=== PATIENT | female | born 1985 | race Caucasian/White ===

== ENCOUNTER 2017-05-15 23:34 | Emergency (ER) | payer MEDICAID, OTHER ==
--- NOTE | 2017-05-16 00:22 | OBHP ---
Datetime: 05/16/2017 00:15 IP Adm Impression: , intrauterine ; No Active Labor IP Chief Complaint Other: pelvic pressure IP Adm Impression Other: constipation IP Admit Plan: Discharge home Admit Comment, IP Provider: chief complaint-vaginal pressure HPI 31 y/o at 36.5 wga with c/o vagina; pressure and no bowel movement for 2 ays Ptaient denies vaginal bleeding or loss of fluid course uncomplicated PMH denies PSH csection obgyn hx Social hx denies tobacco, alcohol or illicit drug use Exam see exam section A/P 28 y/o at 36.5 wga with vaginal/pelvic pressure.constipation.no activ elabor -discharge home -iincrease water intake.advsied to use colace .dietart modifications discussed as well -follow up in am with dr matias Pelvic Type - PN: Adequate Extremities - PN: Normal Abdomen - PN: Normal General - PN: Normal Contraction Comments Provider: none Gestation - Est Wks by US: 36.5 IP Hx Assessment: The History has been Reviewed and is Current EGA AdmitDate IP: 36.4 Vital Signs Provider: Reviewed; Within Normal Limits IP Chief Complaint: Other FHR Category Provider Fetus A: Category I Dilatation, Provider: 0 Effacement, Provider: Station, Provider: [facility] Genitourinary Exam: Normal DTRs - PN: Normal
[2017-05-16 04:31] VITALS: BP 125/70; PULSE 84; RESP 18; TEMP 97.8
== END 2017-05-16 00:24 | disposition home or self-care (01) ==
LOC: C.EROB 23:34
DX: O26.893 Other specified pregnancy related conditions, third trimester (principal); K59.00 Constipation, unspecified; R10.2 Pelvic and perineal pain; Z3A.36 36 weeks gestation of pregnancy

== ENCOUNTER 2017-05-29 07:12 | Inpatient (IN) | payer MEDICAID ==
[2017-05-29] MEDS ORDERED: cefOXitin 2 GM in Dextrose 5% In Water 100 ML IV ONE (07:24)
[2017-05-29] MEDS ORDERED: Sodium Citrate/Citric Acid 15 ml Sol PO ONE (07:24)
[2017-05-29] MEDS ORDERED: Lactated Ringer's 1,000 ML IV SCH (07:30)
[2017-05-29 08:38] LABS: BASO % 0.1 % (0.0-2.0); EOS # 0.1 K/uL (0.0-0.7); EOS % 0.7 % (0.0-4.0); HEMATOCRIT 32.8 % (34.0-47.0); LYMPH # 1.8 K/uL (1.0-4.3); LYMPH % 22.8 % (20.0-40.0); MEAN CORPUSCULAR HEMOGLOBIN 29.6 pg (27.0-31.0); MEAN CORPUSCULAR HGB CONC 33.3 g/dL (33.0-37.0); MEAN PLATELET VOLUME 10.2 fL (7.2-11.7); MONO # 0.5 K/uL (0.0-0.8); MONO % 6.6 % (0.0-10.0); RED CELL DISTRIBUTION WIDTH 15.9 % (11.5-14.5)
[2017-05-29 08:52] LABS: MEAN CELL VOLUME 88.7 fL (81.0-99.0)
[2017-05-29 08:54] LABS: RBC URINE 1 /hpf (0-3); URINE BACTERIA OCC (<OCC); URINE BILIRUBIN NEGATIVE (NEGATIVE); URINE BLOOD NEGATIVE (NEGATIVE); URINE CALCIUM OXALATE CRYSTALS RARE /hpf (<OCC); URINE COLOR Yellow (YELLOW); URINE GLUCOSE (UA) NORMAL (Normal); URINE KETONE NEGATIVE (NEGATIVE); URINE LEUKOCYTE ESTERASE NEG Leu/uL (Negative); URINE PROTEIN NEGATIVE (NEGATIVE); URINE UROBILINOGEN NORMAL mg/dL (0.2-1.0); WBC URINE 2 /hpf (0-5)
[2017-05-29 08:59] LABS: CHLORIDE 104 mmol/L (98-107); POTASSIUM 3.8 mmol/L (3.6-5.2); SODIUM 134 mmol/L (132-148)
[2017-05-29 09:01] LABS: ALB/GLOB RATIO 1.2 (1.0-2.1); AST/SGOT 43 U/L (14-36); BILIRUBIN,TOTAL 1.3 mg/dL (0.2-1.3); BLOOD UREA NITROGEN 10 mg/dL (7-17); CARBON DIOXIDE 18 mmol/L (22-30); GFR AFRICAN-AMERICAN > 60; TOTAL PROTEIN 6.8 g/dL (6.3-8.3)
[2017-05-29 09:02] LABS: ALKALINE PHOSPHATASE 153 U/L (38-126); ALT/SGPT 25 U/L (9-52); CALCIUM 8.6 mg/dl (8.6-10.4); GLUCOSE,RANDOM 74 mg/dL (65-105)
[2017-05-29] MEDS ORDERED: Sodium Citrate/Citric Acid 15 ml Sol ONE (10:52)
[2017-05-29] MEDS ORDERED: Oxytocin 20 units in LR 2,000 ML IV ONE (13:08)
[2017-05-29] MEDS ORDERED: Morphine 1 mg/ml preservative-free Inj(Duramorph) ONE (13:13)
[2017-05-29] MEDS ORDERED: Naloxone 0.4 mg/ml Inj (Adult) IVP PRN (13:53)
[2017-05-29] MEDS: cefOXitin IV 2 gm in Dextrose 2 GM/50 ML BAG IVPB SCH (19:02)
[2017-05-29] MEDS: Simethicone 80 mg Chewtab PO SCH ×2 (19:04→23:29)
--- NOTE | 2017-05-29 20:42 | OP ---
PROCEDURE DATE: 05/29/2017 PREOPERATIVE DIAGNOSES: Intrauterine at 38 weeks in labor, previous section x2. POSTOPERATIVE DIAGNOSES: Intrauterine at 38 weeks in labor, previous section x2. PROCEDURE: Lower segment caesarean section. SURGEON: Yissel Fitch MD. Labor Standards Director: Geovany Jimenes MD TYPE OF ANESTHESIA: Spinal. FINDINGS: Live female , Apgars 9 at 1 minute and 9 at 5 minutes with normal tubes and ovaries. ESTIMATED BLOOD LOSS: 250 mL. COMPLICATIONS: Nil. DESCRIPTION OF PROCEDURE: After the risks, benefits, and alternatives of the planned procedures including but not limited to infection, hemorrhage, deep vein thrombosis, atelectasis, pneumonia, pulmonary embolism, damage to the bladder, damage to the ureter, renal insufficiency, renal failure, wound infection, wound dehiscence, incisional hernia, keloid formation, damage to large and small intestines, damage to inferior vena cava and aorta requiring extensive repair, anesthesia complications, electrolyte imbalance, possibility of , fluid overload, cerebral edema, air embolism, and other complications that were discussed, but are not listed above have been explained to the patient and all her questions were answered and informed consent was obtained. The patient was taken to the operating room in a stable condition. Under a suitable level of spinal analgesia, she was prepped and draped in a sterile fashion after having been placed in a supine position. The abdomen was entered through a Pfannenstiel-type incision and carried through the subcutaneous tissues to the fascia. Fascia was opened transversely and dissected off the rectus abdominis musculature. The rectus abdominis musculature was then in the midline to remove the parietal peritoneum, which was entered sharply and incised superiorly and inferiorly. The bladder peritoneum was then incised in a curvilinear fashion and dissected off the lower uterine segment. The lower uterine segment was then entered through a curvilinear incision. Surgeon's fingers were inserted into the lower uterine segment, grasping 's head which was lying in a right occipital anterior position. The head was easily delivered. Prior to delivering of the , nuchal cord around the head was easily slipped over the baby's head. Nose and mouth was suctioned free of amniotic fluid and the remainder of the infant was delivered without any difficulty. Cord was doubly clamped and cut and the baby was handed over to the clothes marker who was in attendance. Cord blood was collected with Pitocin running, placenta was manually removed. Endometrium was then cleaned free of remaining membranes and clots. Uterine incision was then closed in layers with the first layer being a running interlocking layer using #1 chromic and the second layer being used to imbricate the first layer. Hemostasis was good. The bladder peritoneum was then reapproximated using a running suture of 2-0 chromic. Peritoneal cavity was then irrigated using copious amounts of saline. Saline was evacuated. The abdomen was then closed in layers with 0 chromic to the parietal peritoneum. Rectus muscles were reapproximated using interrupted sutures of 0 chromic. Fascia was reapproximated using 2 separate running sutures of 0 Vicryl to meet in the midline. Subcutaneous tissues were reapproximated using interrupted sutures of 0 plain, and the initial skin incision was reapproximated using 4-0 Vicryl in a subcuticular fashion. Estimated blood loss for the procedure was 250 mL. Pad, needle, and instrument counts were correct x2. There were no complications. Yissel Fitch MD [facility]
[2017-05-30] MEDS: cefOXitin IV 2 gm in Dextrose 2 GM/50 ML BAG IVPB SCH (03:07)
--- NOTE | 2017-05-30 07:22 | HP ---
HISTORY OF PRESENT ILLNESS: The patient is a 31-year-old female, 3, para 2, with previous section x2 with a due date of 06/08/2017 at 38 weeks 5 days, who comes in with contractions since 5:00 a.m. this morning. She denies any leakage of fluid. She denies any vaginal bleeding. PAST OBSTETRICS HISTORY: Significant for previous section x2. MEDICAL HISTORY: Unremarkable. ALLERGIES: NONE. SOCIAL HISTORY: She does not smoke or drink. CURRENT MEDICATIONS: . PHYSICAL EXAMINATION: VITAL SIGNS: Blood pressure is 110/70, pulse is 72, respiratory rate is 20 and temperature is 98.8. HEAD, EYES, EARS, NOSE AND THROAT: Within normal. CHEST: Clear. CARDIAC: Reveals normal heart sounds without any murmurs. LUNGS: Clear. BREASTS: Reveal no masses. ABDOMEN: Symphyseal-fundal height is 38 cm longitudinal lie vertex. heart tones are normal. PELVIC: Shows normal vulva. Bartholin's, urethra and [place]'s glands are within normal. Cervix is 2 cm, 60% effaced, -2 station. ADMITTING DIAGNOSIS: Intrauterine at 38 weeks, previous section x2, early labor. PLAN: To perform a lower segment section. Prior to being scheduled for the surgical procedure, the patient underwent an informed consent, discussion and education session with me in the hospital lasting approximately 45 minutes, during which time I explained with an understandable terms the following; the nature and extent of the disease process and the nature and extent of the contemplated operation. I also explained the risks and potential complications of the operative procedures to include but not limited to infection, hemorrhoids, deep vein thrombosis, atelectasis, pneumonia, pulmonary embolism, damage to bladder, damage to the ureter, renal insufficiency, renal failure, wound infection, wound dehiscence, incisional hernia, keloid formation, damage to large and small intestine, damage to inferior vena cava and aorta requiring extensive repair, anesthesia complications, electrolyte imbalance, possibility of , fluid overload, cerebral edema, air embolism, and other complications that were discussed but are not listed above. Also discussed with the patient the risk of prematurity, low scores and breathing difficulties in the baby. I discussed with the patient about the operation that are not accomplished. I informed the patient that the possibility of an unanticipated pathology requiring a more extensive procedure. All of the questions from the patient were encouraged, welcomed and answered to her satisfaction. The patient had been given the opportunity to blood prenatally for using an autologous blood transfusion and she had declined. Yissel Fitch MD
[2017-05-30 07:38] LABS: BASO % 0.2 % (0.0-2.0); EOS # 0.1 K/uL (0.0-0.7); EOS % 0.5 % (0.0-4.0); HEMATOCRIT 30.5 % (34.0-47.0); LYMPH # 1.6 K/uL (1.0-4.3); LYMPH % 13.6 % (20.0-40.0); MEAN CELL VOLUME 87.6 fL (81.0-99.0); MEAN CORPUSCULAR HEMOGLOBIN 29.2 pg (27.0-31.0); MEAN CORPUSCULAR HGB CONC 33.3 g/dL (33.0-37.0); MEAN PLATELET VOLUME 10.2 fL (7.2-11.7); MONO # 0.7 K/uL (0.0-0.8); MONO % 6.3 % (0.0-10.0); NRBC % 0.1 % (0.0-2.0); RED CELL DISTRIBUTION WIDTH 15.8 % (11.5-14.5); WHITE BLOOD COUNT 11.6 K/uL (4.8-10.8)
[2017-05-30] MEDS: Simethicone 80 mg Chewtab PO SCH ×4 (11:00→21:28)
[2017-05-30] MEDS: Oxycodone/Acetaminophen 5/325 mg Tab PO PRN ×2 (11:03→21:26)
[2017-05-30] MEDS: Enoxaparin 30 mg Syringe SC SCH (11:04)
[2017-05-31] MEDS: Oxycodone/Acetaminophen 5/325 mg Tab PO PRN ×2 (07:34→22:01)
[2017-05-31 08:47] LABS: BASO % 0.1 % (0.0-2.0); EOS # 0.1 K/uL (0.0-0.7); EOS % 0.7 % (0.0-4.0); HEMATOCRIT 31.8 % (34.0-47.0); LYMPH # 1.7 K/uL (1.0-4.3); LYMPH % 15.6 % (20.0-40.0); MEAN CELL VOLUME 88.9 fL (81.0-99.0); MEAN CORPUSCULAR HEMOGLOBIN 29.6 pg (27.0-31.0); MEAN CORPUSCULAR HGB CONC 33.3 g/dL (33.0-37.0); MEAN PLATELET VOLUME 9.9 fL (7.2-11.7); MONO # 0.7 K/uL (0.0-0.8); MONO % 6.3 % (0.0-10.0); RED CELL DISTRIBUTION WIDTH 15.8 % (11.5-14.5); WHITE BLOOD COUNT 10.8 K/uL (4.8-10.8)
[2017-05-31] MEDS ORDERED: Influenza Vaccine 60 mcg/0.5 mL SYR (4YR UP) IM ONE (09:10)
[2017-05-31] MEDS: Enoxaparin 30 mg Syringe SC SCH (09:31)
[2017-05-31] MEDS: Simethicone 80 mg Chewtab PO SCH ×4 (09:31→21:57)
--- NOTE | 2017-05-31 21:53 | PN ---
DATE: SUBJECTIVE: The patient has no complaints. She has mild incisional pain, afebrile. PHYSICAL EXAMINATION VITAL SIGNS: Stable. she is afebrile. ABDOMEN: Incision is clean and intact. EXTREMITIES: Nontender with no evidence of DVT. Nataly's sign is negative. Lochia is scant. BREASTS: Revealed no engorgement. ASSESSMENT: The patient is status post section, day #2. PLAN: To continue ambulation and advanced diet as tolerated. Yissel Fitch MD
[2017-06-01 08:01] VITALS: O2SAT 98
[2017-06-01] MEDS: Simethicone 80 mg Chewtab PO SCH ×2 (09:27→13:36)
[2017-06-01] MEDS: Enoxaparin 30 mg Syringe SC SCH (09:28)
[2017-06-01 21:04] VITALS: BP 110/70; PULSE 90; RESP 18; TEMP 98.6
== END 2017-06-01 17:02 | disposition home or self-care (01) | DRG 371 ==
LOC: C.4D 07:12 → C.4M 17:00
PROVIDERS: ADMIT Obstetrics & Gynecology Reproductive Endocrinology; ATTEND Obstetrics & Gynecology Reproductive Endocrinology
PROC: 10D00Z1 Extraction of Products of Conception, Low, Open Approach (ICD-10-PCS; principal; 2017-05-29)
DX: O34.219 Maternal care for unspecified type scar from previous cesarean delivery (principal); Z37.0 Single live birth; Z3A.38 38 weeks gestation of pregnancy

== ENCOUNTER 2017-06-15 14:44 | Emergency (ER) | payer MEDICAID ==
[2017-06-15 15:01] VITALS: TEMP 97.6; O2SAT 98
--- NOTE | 2017-06-15 15:43 | C.PDOC ---
History Of Present Illness 31 year old female presents to the ED for evaluation of drainage and foul odor from wound site since yesterday. Patient had on 05/29/17. Patient denies fever, chills. Time Seen by Provider: 06/15/17 15:24 Chief Complaint (Nursing): Abnormal Skin Integrity History Per: Patient History/Exam Limitations: no limitations Onset/Duration Of Symptoms: Days Current Symptoms Are (Timing): Still Present Quality Of Symptoms: Draining Additional History Per: Patient Past Medical History Reviewed: Historical Data, Nursing Documentation, Vital Signs Vital Signs: Last Vital Signs Temp 97.6 F 06/15/17 14:57 Pulse 85 06/15/17 16:05 Resp 18 06/15/17 16:05 BP 110/70 06/15/17 16:05 Pulse Ox 98 06/15/17 16:49 - Medical History PMH: No Chronic Diseases Surgical History: No Surg Hx - [facility] Procedures EXTRACTION OF POC, LOW CERVICAL, OPEN APPROACH (05/29/17) Family History: States: Unknown Family Hx - Social History Hx Tobacco Use: No Hx Alcohol Use: No Hx Substance Use: No - Immunization History Hx Tetanus Toxoid Vaccination: No Hx Influenza Vaccination: Yes Hx Pneumococcal Vaccination: Yes Review Of Systems Constitutional: Negative for: Fever, Chills Skin: Positive for: Other (wound check, no drainage) Physical Exam - Physical Exam Appears: Non-toxic, No Acute Distress Skin: Warm, Dry, Other (minimal, 0.5cm separation to right distal end of c- section wound. no erythema, swelling or discharge noted ) Head: Atraumatic, Normacephalic Eye(s): bilateral: Normal Inspection Neck: Normal ROM Chest: Symmetrical Gastrointestinal/Abdominal: Soft, Tenderness (minimally appropriate tender to co -section site) Extremity: Bilateral: Atraumatic Neurological/Psych: Oriented x3, Normal Speech ED Course And Treatment O2 Sat by Pulse Oximetry: 98 (on RA) Pulse Ox Interpretation: Normal Medical Decision Making Medical Decision Making: Patient with wound that has tiny separation and slight odor, no erythema or purulent drainage. Will Keflex to take at home. Recommend follow up with her general internist and physician leader in 2 days. Disposition Counseled Patient/Family Regarding: Diagnosis, Need For Followup, Rx Given - Disposition Referrals: Yissel Fitch MD [Staff Provider] - Disposition: HOME/ ROUTINE Disposition Time: 15:40 Condition: GOOD Additional Instructions: Yohana antibiticos dos veces al da Mantenga el alexander limpia y seca, cambie el vendaje todos los greene seguimiento con teran ob / geological sample tester Prescriptions: Cephalexin [cephalexin] 500 mg PO Q12 #14 cap Instructions: Acute Wound Care (ED) Forms: [employer] (Armenian) Print Language: DIVEHI - POA Present On Arrival: None - Clinical Impression Clinical Impression: Visit for wound check - PA / ECONOMIC DEVELOPMENT MANAGER / Resident Statement MD/DO has reviewed & agrees with the documentation as recorded. - Scribe Statement The provider has reviewed the documentation as recorded by the Scribe (Michelle Zamora) All medical record entries made by the Scribe were at my direction and personally dictated by me. I have reviewed the chart and agree that the record accurately reflects my personal performance of the history, physical exam, medical decision making, and the department course for this patient. I have also personally directed, reviewed, and agree with the discharge instructions and disposition.
[2017-06-15 16:07] VITALS: BP 110/70; PULSE 85; RESP 18
== END 2017-06-15 16:06 | disposition home or self-care (01) ==
LOC: C.ER 14:44
DX: Z48.01 Encounter for change or removal of surgical wound dressing (principal)

== ENCOUNTER 2017-08-09 19:46 | Emergency (ER) | payer MEDICAID ==
[2017-08-09 20:11] VITALS: BP 120/77; PULSE 20; RESP 75; TEMP 97.6; O2SAT 100
--- NOTE | 2017-08-09 21:55 | C.PDOC ---
History Of Present Illness 31 year old female presents to the ER with a complaint of nasal congestion, fever and cough for the past few days. Patient denies nausea, vomiting, diarrhea, sick contact, or recent travel. Time Seen by Provider: 08/09/17 21:01 Chief Complaint (Nursing): Flu-like Symptoms History Per: Patient History/Exam Limitations: no limitations Onset/Duration Of Symptoms: Days Current Symptoms Are (Timing): Still Present Location Of Pain: None Sick Contacts (Context): None Associated Symptoms: Fever, Nasal Congestion Ear Symptoms: Bilateral: None Recent travel outside of the [place]: No Past Medical History Reviewed: Historical Data, Nursing Documentation, Vital Signs Vital Signs: Last Vital Signs Temp 97.6 F 08/09/17 20:06 Pulse 20 L 08/09/17 20:06 Resp 75 H 08/09/17 20:06 BP 120/77 08/09/17 20:06 Pulse Ox 100 08/09/17 22:37 - Medical History PMH: No Chronic Diseases - [facility] Procedures EXTRACTION OF POC, LOW CERVICAL, OPEN APPROACH (05/29/17) Family History: States: Unknown Family Hx - Social History Hx Tobacco Use: No Hx Alcohol Use: No Hx Substance Use: No - Immunization History Hx Tetanus Toxoid Vaccination: No Hx Influenza Vaccination: Yes Hx Pneumococcal Vaccination: Yes Review Of Systems Constitutional: Positive for: Fever ENT: Positive for: Nose Congestion. Negative for: Ear Pain, Ear Discharge Respiratory: Negative for: Cough Gastrointestinal: Negative for: Nausea, Vomiting, Diarrhea Physical Exam - Physical Exam Appears: Non-toxic, No Acute Distress Skin: Normal Color, Warm, Dry Head: Atraumatic, Normacephalic Eye(s): bilateral: Normal Inspection Ear(s): Bilateral: Normal Nose: Other (Congestion) Oral Mucosa: Moist Throat: Normal, No Erythema, No Exudate Neck: Normal, Supple Chest: Symmetrical, No Tenderness Cardiovascular: Rhythm Regular Respiratory: Normal Breath Sounds, No Rales, No Rhonchi, No Wheezing Gastrointestinal/Abdominal: Soft, No Tenderness Neurological/Psych: Oriented x3, Normal Speech ED Course And Treatment O2 Sat by Pulse Oximetry: 100 (Room air) Pulse Ox Interpretation: Normal Medical Decision Making Medical Decision Making: pt with ?fever, cough. - will tx for flu like symptoms. Disposition Counseled Patient/Family Regarding: Diagnosis, Need For Followup, Rx Given - Disposition Referrals: [facility] [Outside] Disposition: HOME/ ROUTINE Disposition Time: 22:29 Condition: STABLE Additional Instructions: [place] ibuprofeno para la fiebre o el dolor corporal. [place] loratidina para disminuir la secrecin nasal. [place] la gripe Paz para ayudar a reducir los s ntomas. Anastacia ms lquidos, mantngase patience hidratado. Jane un seguimiento con teran mdico o en zen clnica mdica en zen semana. Take ibuprofen for fever or body pain, Take loratidine to decrease nasal discharge. Take Paz flu to help shorten symptoms. Drink more fluids, stay well hydrated. Follow up with your doctor or in medical clinic in a week. Prescriptions: Ibuprofen [Motrin] 600 mg PO TID #30 tab Loratadine 10 mg PO DAILY #14 tablet Oseltamivir [Tamiflu] 75 mg PO BID #10 cap Instructions: Upper Respiratory Infection (ED), Viral Syndrome (ED) Forms: Gen Discharge Inst Bulgarian, [employer] (Bulgarian) Print Language: TURKISH - Clinical Impression Clinical Impression: Influenza-like illness - PA / SIZE PAINTER / Resident Statement MD/DO has reviewed & agrees with the documentation as recorded. - Scribe Statement The provider has reviewed the documentation as recorded by the Scriboswaldo Steele All medical record entries made by the Genaroiboswaldo were at my direction and personally dictated by me. I have reviewed the chart and agree that the record accurately reflects my personal performance of the history, physical exam, medical decision making, and the department course for this patient. I have also personally directed, reviewed, and agree with the discharge instructions and disposition.
== END 2017-08-09 23:22 | disposition home or self-care (01) ==
LOC: C.ER 19:46
DX: J11.1 Influenza due to unidentified influenza virus with other respiratory manifestations (principal)